=== PATIENT | female | born 1990 | race Caucasian/White ===

== ENCOUNTER 2024-02-25 13:51 | Outpatient (CLI) | payer OTHER | END 2024-02-25 13:52 | disposition home or self-care (01) | LOC: CSHULT 13:51 | PROVIDERS: ATTEND Nurse Practitioner Women's Health | DX: Z36.3 Encounter for antenatal screening for malformations (principal); Z34.92 Encounter for supervision of normal pregnancy, unspecified, second trimester; Z3A.22 22 weeks gestation of pregnancy | CPT/HCPCS: 76805 ==

== ENCOUNTER 2024-02-29 21:51 | Day surgery (SDC) | payer OTHER ==
[2024-02-29 22:21] VITALS: BMI 31.4
== END 2024-02-29 23:27 | disposition home or self-care (01) ==
LOC: CSHLD/OP 21:51
PROVIDERS: ATTEND Obstetrics & Gynecology
DX: O36.8120 Decreased fetal movements, second trimester, not applicable or unspecified (principal); O99.512 Diseases of the respiratory system complicating pregnancy, second trimester; J45.909 Unspecified asthma, uncomplicated; Z3A.22 22 weeks gestation of pregnancy; Z79.899 Other long term (current) drug therapy; Z90.49 Acquired absence of other specified parts of digestive tract; Z88.1 Allergy status to other antibiotic agents; Z88.0 Allergy status to penicillin; Z91.018 Allergy to other foods

== ENCOUNTER 2024-05-13 15:29 | Day surgery (SDC) | payer OTHER ==
[2024-05-13 16:02] VITALS: BMI 33.5
[2024-05-13 16:24] LABS: #Basophils 0.03 10x3/uL (0.0-0.2); #Eosinphils 0.01 10x3/uL (0.0-0.5); #Monocytes 0.69 10x3/uL (0.0-1.1); #Neutrophils 8.33 10x3/uL (1.5-8.4); %Basophils 0.3 % (0.0-2.0); %Eosinophils 0.1 % (0.0-6.0); %Lymphocytes 9.4 % (18.0-47.0); %Monocytes 6.8 % (0.0-10.0); %Neutrophils 82.2 % (40.0-75.0); Hematocrit 32.6 % (34.9-44.5); Hemoglobin 11.5 g/dL (12.0-15.5); Mean Corpuscular HGB CONC 35.3 g/dL (32.0-36.0); Mean Corpuscular Hemoglobin 32.1 pg (27.0-33.0); Mean Corpuscular Volume 91.1 fL (81.6-98.3); Platelet Count 241 10x3/uL (150-450); RBC Distribution Width 12.4 % (11.5-14.5); Red Blood Cell (RBC) Count 3.58 10x6/uL (3.90-5.03); White Blood Cell (WBC) Count 10.1 10x3/uL (3.5-10.5)
[2024-05-13 16:37] LABS: ALT (SGPT) 22 U/L (8-55); AST (SGOT) 21 U/L (5-34); Albumin 2.8 g/dL (3.5-5.0); Alkaline Phosphatase 97 U/L (40-110); Anion Gap 12 mmol/L (10-20); BUN (Urea Nitrogen) 5 mg/dL (7.0-18.7); Bilirubin, Total 1.4 mg/dL (0.2-1.2); Calc. Creatinine Clearance 172 mL/min (70-130); Calcium 8.5 mg/dL (7.8-10.44); Carbon Dioxide 18 mmol/L (22-29); Chloride 107 mmol/L (98-107); Estimated GFR 121; Globulin 2.8 g/dL (2.4-3.5); Glucose 97 mg/dL (70-105); Potassium 3.9 mmol/L (3.5-5.1); Protein, Total 5.6 g/dL (6.0-8.3); Sodium 133 mmol/L (136-145)
[2024-05-13] MEDS: Ondansetron ODT 4 MG TAB PO PRN (17:00)
[2024-05-13] MEDS: Lactated Ringer's 1,000 ML IV SCH (17:01)
[2024-05-13] MEDS: Famotidine 20 MG TAB PO SCH (17:33)
[2024-05-13] MEDS: Metamucil PACK PO SCH (17:49)
[2024-05-13] MEDS ORDERED: Famotidine 20 MG TAB PO SCH (21:00)
[2024-05-14] MEDS ORDERED: Metamucil PACK PO SCH (09:00)
== END 2024-05-13 18:44 | disposition home or self-care (01) ==
LOC: CSHLD/OP 15:29
PROVIDERS: ATTEND Student in an Organized Health Care Education/Training Program
DX: O36.8130 Decreased fetal movements, third trimester, not applicable or unspecified (principal); O99.891 Other specified diseases and conditions complicating pregnancy; R51.9 Headache, unspecified; R19.7 Diarrhea, unspecified; O21.2 Late vomiting of pregnancy; O23.593 Infection of other part of genital tract in pregnancy, third trimester; B96.89 Other specified bacterial agents as the cause of diseases classified elsewhere; Z88.1 Allergy status to other antibiotic agents; Z88.0 Allergy status to penicillin; Z91.018 Allergy to other foods; Z3A.33 33 weeks gestation of pregnancy
CPT/HCPCS: 36415; 76819; 80053; 85025; 96360; 96361; 99283; Q0162

== ENCOUNTER 2024-07-03 19:00 | Inpatient (IN) | payer OTHER ==
[2024-07-03 22:57] VITALS: BMI 35.6
[2024-07-03] MEDS ORDERED: Misoprostol 200 MCG TAB PR PRN (23:40)
[2024-07-03] MEDS ORDERED: Tranexamic Acid 1,000 MG/10 ML VIAL IVP PRN (23:40)
[2024-07-03] MEDS ORDERED: Lidocaine 1% (PF) 30 ML VIAL SC PRN (23:40)
[2024-07-03] MEDS ORDERED: Methylergonovine 0.2 MG/ML VIAL IM PRN (23:40)
[2024-07-03] MEDS ORDERED: Promethazine HCl 25 MG/ML VIAL IM PRN (23:40)
[2024-07-03] MEDS ORDERED: Ondansetron PF 4 MG/2 ML Vial IVP PRN (23:40)
[2024-07-03] MEDS ORDERED: hydrALAZINE 20 MG/ML VIAL SLOW IVP PRN (23:40)
[2024-07-03] MEDS ORDERED: Oxytocin 30 units/NS 500 ML 500 ML IV SCH ×2 (23:45)
[2024-07-04 00:28] LABS: Hematocrit 33.4 % (34.9-44.5); Hemoglobin 11.9 g/dL (12.0-15.5); Mean Corpuscular HGB CONC 35.6 g/dL (32.0-36.0); Mean Corpuscular Hemoglobin 32.3 pg (27.0-33.0); Mean Corpuscular Volume 90.8 fL (81.6-98.3); Mean Platelet Volume 10.6 fL (7.4-10.4); Platelet Count 219 10x3/uL (150-450); RBC Distribution Width 12.2 % (11.5-14.5); Red Blood Cell (RBC) Count 3.68 10x6/uL (3.90-5.03); White Blood Cell (WBC) Count 9.2 10x3/uL (3.5-10.5)
[2024-07-04 01:01] LABS: HBsAg Index 0.25 S/CO (0-0.99); Hep B Surf Ag - L&D Non-Reactive S/CO (NonReactive)
[2024-07-04 01:02] LABS: Syphilis Antibody Nonreactive (Nonreactive); Syphilis Antibody Index 0.05 S/CO (<1.00 Non-Reactive)
[2024-07-04] MEDS: fentaNYL 50 mcg/mL 1 mL Vial SLOW IVP SCH (02:04)
[2024-07-04] MEDS: Misoprostol 100 MCG TAB VAG SCH (02:05)
[2024-07-04] MEDS ORDERED: fentaNYL 50 mcg/mL 1 mL Vial SLOW IVP PRN ×2 (02:30→22:46)
[2024-07-04] MEDS: Lactated Ringer's 1,000 ML IV SCH (04:33)
[2024-07-04] MEDS: fentaNYL/Ropivacaine Epidural 100 ML ONE (04:41)
[2024-07-04] MEDS ORDERED: diphenhydrAMINE 50 MG/ML VIAL IVP PRN ×2 (04:51→22:46)
[2024-07-04] MEDS ORDERED: Promethazine HCl 25 MG/ML VIAL IM PRN ×2 (04:51→22:46)
[2024-07-04] MEDS ORDERED: Lactated Ringer's 500 ML IV PRN (04:51)
[2024-07-04] MEDS ORDERED: Naloxone HCl 0.4 mg/ml Vial IVP PRN ×4 (04:51→22:46)
[2024-07-04] MEDS ORDERED: ePHEDrine Sulfate 50 MG/10 ML VIAL SLOW IVP PRN (04:51)
[2024-07-04] MEDS ORDERED: Moisturizing Cream (Eucerin) 113 GM JAR TOP PRN ×2 (04:51→22:46)
[2024-07-04] MEDS ORDERED: Ondansetron PF 4 MG/2 ML Vial IVP PRN ×3 (04:51→22:46)
[2024-07-04] MEDS ORDERED: Acetaminophen 325 MG TAB PO PRN (04:51)
[2024-07-04] MEDS: fentaNYL 2 mcg/Ropivacaine 0.2% Epidural 100 ML CADD EPIDURAL SCH (15:12)
[2024-07-04] MEDS: Acetaminophen 500 MG TAB PO SCH (21:05)
[2024-07-04 21:23] LABS: Hematocrit 34.3 % (34.9-44.5); Hemoglobin 11.9 g/dL (12.0-15.5); MDiff Complete? YES; Mean Corpuscular HGB CONC 34.7 g/dL (32.0-36.0); Mean Corpuscular Hemoglobin 32.3 pg (27.0-33.0); Mean Corpuscular Volume 93.2 fL (81.6-98.3); Platelet Count 224 10x3/uL (150-450); RBC Distribution Width 12.6 % (11.5-14.5); Red Blood Cell (RBC) Count 3.68 10x6/uL (3.90-5.03); White Blood Cell (WBC) Count 15.5 10x3/uL (3.5-10.5)
[2024-07-04] MEDS ORDERED: Bicitra 30 ML UDCUP PO PRN (21:53)
[2024-07-04] MEDS ORDERED: Famotidine/PF 20 mg/2ml Vial SLOW IVP PRN (21:53)
[2024-07-04 22:14] LABS: ALT (SGPT) 24 U/L (8-55); AST (SGOT) 24 U/L (5-34); Albumin 2.7 g/dL (3.5-5.0); Alkaline Phosphatase 117 U/L (40-110); Anion Gap 14 mmol/L (10-20); BUN (Urea Nitrogen) 9 mg/dL (7.0-18.7); Bilirubin, Total 2.1 mg/dL (0.2-1.2); Calc. Creatinine Clearance 138 mL/min (70-130); Calcium 8.6 mg/dL (7.8-10.44); Carbon Dioxide 17 mmol/L (22-29); Chloride 105 mmol/L (98-107); Estimated GFR 98; Globulin 3.3 g/dL (2.4-3.5); Glucose 91 mg/dL (70-105); INR-International Normal Ratio 0.9; PTT 24.9 sec (22.0-33.0); Potassium 3.7 mmol/L (3.5-5.1); Prothrombin Time 9.8 sec (9.5-12.1); Sodium 132 mmol/L (136-145)
[2024-07-04 22:34] LABS: Band 38 % (5-11); Lymphocytes 8 % (21-51); Monocytes 6 % (0-10); Neutrophil 48 % (42-75)
[2024-07-04 22:36] LABS: Platelet Adequacy Comment Appears Adequate
[2024-07-04 22:37] LABS: Ovalocytes SLIGHT = 2-5 cells (100X) (0-1/hpf); Polychromasia SLIGHT = 2-3 cells (100X) (0-2/hpf)
[2024-07-04] MEDS ORDERED: Meperidine HCl/PF 25 MG (1 mL) VIAL SLOW IVP PRN (22:46)
[2024-07-04] MEDS ORDERED: Naloxone HCl 0.4 mg/ml Vial IV PRN (22:46)
[2024-07-04 22:53] LABS: Analyzer IN Cardio CS NICU; RapidComm Collect By RN
[2024-07-04 22:54] LABS: Analyzer IN Cardio CS NICU; RapidComm Collect By RN; pH (Cord, venous) 7.236 (7.250-7.350)
[2024-07-04] MEDS ORDERED: Communication Order-Pharmacy FS SCH (23:00)
[2024-07-04] MEDS: Gentamicin 330 MG, Admixture Fee 1 EACH in Sodium Chloride 0.9% 100 ML IVPB SCH (23:30)
[2024-07-05] MEDS ORDERED: hydrALAZINE 20 MG/ML VIAL SLOW IVP PRN (00:04)
[2024-07-05] MEDS ORDERED: Lanolin Ointment 7 GM TUBE TOP PRN (00:04)
[2024-07-05] MEDS ORDERED: Boostrix 0.5 ML (Tdap) VIAL (>/=7 yrs of age) IM ONE (00:04)
[2024-07-05] MEDS ORDERED: Bisacodyl 10 MG SUPP PR PRN (00:04)
[2024-07-05] MEDS: Ketorolac Tromethamine 30 MG (1 mL) VIAL IVP SCH (00:12)
[2024-07-05] MEDS: Ondansetron PF 4 MG/2 ML Vial ONE (02:25)
[2024-07-05] MEDS: Dexamethasone 10 MG/ML VIAL ONE (02:25)
[2024-07-05] MEDS: Oxytocin 10 UNITS/ML VIAL ONE (02:25)
[2024-07-05] MEDS: Morphine PF 10 MG/10 ML VIAL ONE (02:26)
[2024-07-05] MEDS: PHENYLEPHRINE-NS 100 MCG/ML 10 ML SYRINGE ONE (02:26)
[2024-07-05 02:47] LABS: Hematocrit 32.6 % (34.9-44.5); Hemoglobin 11.3 g/dL (12.0-15.5); MDiff Complete? YES; Mean Corpuscular HGB CONC 34.7 g/dL (32.0-36.0); Mean Corpuscular Volume 92.4 fL (81.6-98.3); Mean Platelet Volume 10.2 fL (7.4-10.4); Platelet Count 200 10x3/uL (150-450); RBC Distribution Width 12.7 % (11.5-14.5); Red Blood Cell (RBC) Count 3.53 10x6/uL (3.90-5.03); White Blood Cell (WBC) Count 15.3 10x3/uL (3.5-10.5)
[2024-07-05] MEDS: Clindamycin/D5W 900 MG in Premix 1 BAG IVPB SCH ×2 (03:02→04:24)
[2024-07-05 04:24] LABS: Band 40 % (5-11); Lymphocytes 10 % (21-51); Metamyelocyte 1 % (0-0); Monocytes 9 % (0-10); Neutrophil 40 % (42-75)
[2024-07-05] MEDS: Acetaminophen 325 MG TAB PO SCH (04:24)
[2024-07-05 04:25] LABS: Platelet Adequacy Comment Appears Adequate
[2024-07-05 04:27] LABS: Dohle Bodies SLIGHT; Ovalocytes SLIGHT = 2-5 cells (100X) (0-1/hpf)
[2024-07-05] MEDS: Ketorolac Tromethamine 30 MG (1 mL) VIAL IVP PRN (07:53)
[2024-07-05] MEDS: Prenatal Vitamin 1 TAB PO SCH (09:19)
[2024-07-05] MEDS: Docusate 100 MG CAP PO SCH (09:20)
[2024-07-05] MEDS: Vancomycin 1.5 GRAM/300 ML BAG 1.5 GM in Premix 1 BAG IVPB SCH (09:27)
[2024-07-05] MEDS: Enoxaparin 40 MG (0.4 mL) SYRINGE SC SCH (09:37)
[2024-07-05] MEDS: HYDROcodone/Acetaminophen 5/325 mg Tablet PO PRN (12:15)
[2024-07-06 04:31] LABS: #Basophils 0.02 10x3/uL (0.0-0.2); #Eosinophils 0.03 10x3/uL (0.0-0.5); #Monocytes 0.42 10x3/uL (0.0-1.1); #Neutrophils 10.78 10x3/uL (1.5-8.4); %Basophils 0.2 % (0.0-2.0); %Eosinophils 0.2 % (0.0-6.0); %Lymphocytes 11.4 % (18.0-47.0); %Monocytes 3.3 % (0.0-10.0); %Neutrophils 83.7 % (40.0-75.0); Hematocrit 27.4 % (34.9-44.5); Hemoglobin 8.9 g/dL (12.0-15.5); Mean Corpuscular HGB CONC 32.5 g/dL (32.0-36.0); Mean Corpuscular Hemoglobin 31.4 pg (27.0-33.0); Mean Corpuscular Volume 96.8 fL (81.6-98.3); Mean Platelet Volume 10.2 fL (7.4-10.4); Platelet Count 187 10x3/uL (150-450); Red Blood Cell (RBC) Count 2.83 10x6/uL (3.90-5.03); White Blood Cell (WBC) Count 12.9 10x3/uL (3.5-10.5)
[2024-07-06] MEDS: Ibuprofen 800 MG TAB PO SCH (05:51)
[2024-07-06] MEDS: HYDROcodone/Acetaminophen 5/325 mg Tablet PO PRN (15:27)
[2024-07-06] MEDS: Simethicone Chewable 80 MG TAB PO PRN (16:46)
[2024-07-07 04:46] LABS: Hematocrit 26.2 % (34.9-44.5); Hemoglobin 8.6 g/dL (12.0-15.5)
[2024-07-07] MEDS: Ferrous Sulfate 325 MG TAB PO SCH (07:57)
[2024-07-07 16:23] VITALS: BP 131/79; TEMP 98.4
== END 2024-07-07 18:00 | disposition home or self-care (01) | DRG 786 ==
LOC: CSHLD 20:53 → CSHPP 07-05 01:50
PROVIDERS: ADMIT Student in an Organized Health Care Education/Training Program; ATTEND Student in an Organized Health Care Education/Training Program
PROC: 10D00Z1 Extraction of Products of Conception, Low, Open Approach (ICD-10-PCS; principal; 2024-07-04)
PROC: 4A033R1 Measurement of Arterial Saturation, Peripheral, Percutaneous Approach (ICD-10-PCS; 2024-07-04)
PROC: 3E0334Z Introduction of Serum, Toxoid and Vaccine into Peripheral Vein, Percutaneous Approach (ICD-10-PCS; 2024-07-05)
DX: O99.52 Diseases of the respiratory system complicating childbirth (principal); O41.1230 Chorioamnionitis, third trimester, not applicable or unspecified; Z3A.40 40 weeks gestation of pregnancy; Z37.0 Single live birth; O99.02 Anemia complicating childbirth; D64.9 Anemia, unspecified; Z90.49 Acquired absence of other specified parts of digestive tract; O99.344 Other mental disorders complicating childbirth; Z88.0 Allergy status to penicillin; Z91.018 Allergy to other foods; O77.0 Labor and delivery complicated by meconium in amniotic fluid; F32.9 Major depressive disorder, single episode, unspecified; J45.909 Unspecified asthma, uncomplicated; D72.829 Elevated white blood cell count, unspecified
CPT/HCPCS: 36415; 51702; 80053; 82805; 83605; 85014; 85018; 85025; 85027; 85461; 85610; 85730; 86780; 86850; 86870; 86900; 86901; 86922; 87040; 87340; 88307; 90384; 96372; C1889; J1100; J1580; J1650; J1885; J2274; J2405; J2590; J3010; J3370; J3490; J7030; J7120